=== PATIENT | female | born 2000 | race Caucasian/White ===

== ENCOUNTER → 2023-06-06 10:12 | Outpatient (CLI) | payer SELFPAY ==
[2023-06-06 12:33] LABS: HCG,Quantitative 16619 mIU/ml (0-5.42)
[2023-06-07 11:48] LABS: Progesterone 42.2 ng/mL (.)
== END ==
LOC: LAB 10:15
PROVIDERS: Visit Provider Obstetrics & Gynecology
DX: N92.6 Irregular menstruation, unspecified (principal); Z32.00 Encounter for pregnancy test, result unknown
CPT/HCPCS: 36415; 84144; 84702

== ENCOUNTER → 2023-07-03 12:28 | Outpatient (CLI) | payer SELFPAY ==
[2023-07-03 13:04] LABS: Basophils % 0.2 % (0.1-2.0); Eosinophils # 0.2 K/mm3 (0.0-0.4); Hematocrit 37.1 % (37.0-47.0); Hemoglobin 12.2 g/dL (12.2-16.2); Lymphocytes # 1.6 K/mm3 (0.7-4.5); Lymphocytes % 17.1 % (10-50); Mean Corpuscular HGB Conc 32.9 g/dL (31.8-35.4); Monocytes # 0.3 K/mm3 (0.1-1.0); Monocytes % 2.6 % (1.7-9.3); Neutrophils # 7.4 K/mm3 (1.8-7.8); Neutrophils % 78.1 % (37.0-80.0); Platelet Count 252 K/mm3 (142-424); Red Blood Count 4.07 M/mm3 (4.20-5.40); Red Cell Distribution Width 12.4 % (11.5-17.5); White Blood Count 9.5 K/mm3 (4.8-10.8)
[2023-07-03 13:14] LABS: Glucose,Fasting 96 mg/dl (74-100)
[2023-07-03 15:25] LABS: Glucose 1 Hour 120 mg/dL (74-100)
[2023-07-05 12:12] LABS: Rapid Plasma Reagin Ab Titer Non Reactive titer (NonRea<1:1)
[2023-07-10 12:15] LABS: HIV Screen 4th Generation wRfx Non Reactive; Hepatitis B Surface Antigen Negative; Hepatitis C Antibody Non Reactive
[2023-07-10 12:16] LABS: Rubella Antibodies, IgG 4.42
== END ==
LOC: LAB 12:28
PROVIDERS: Visit Provider Obstetrics & Gynecology
DX: Z34.93 Encounter for supervision of normal pregnancy, unspecified, third trimester (principal); Z3A.29 29 weeks gestation of pregnancy
CPT/HCPCS: 36415; 82951; 85025; 86593; 86703; 86762; 86850; 87086; 87340; 87380; G0432

== ENCOUNTER → 2023-07-06 09:50 | Outpatient (CLI) | payer SELFPAY ==
--- NOTE | 2023-07-06 09:50 | US_ITS ---
PROCEDURE: US OB /MATERNAL DETAIL CLINICAL INDICATION: anatomy scan COMPARISON: No exams were available for comparison FINDINGS: Transabdominal sonographic images of the uterus were obtained. From her last menstrual period she is 29 weeks 5 days. Single viable intrauterine gestation. Breech position. Placenta: Anteriorplacenta grade 1. There is average amount fluid. The cervix appears satisfactory. Closed and measuring 4.6 cm in length. Complete survey performed and was unremarkable on the submitted images as in PACS. No discrete anomalies identified on survey imaging by technologist. Active fetus. Three-vessel cord with satisfactory umbilical cord insertion. 4- chamber heart noted. Situs, aortic arch, LVOT, RVOT appear normal. Survey of brain & ventricles Unremarkable. Thalamus, choroid plexus, cisterna magna, cerebellum appear normal. Face and neck survey unremarkable. Profile, nasion, nose and lips appear normal. Diaphragm and chest views unremarkable. Abdomen: Both kidneys noted and unremarkable. Stomach, bladder noted and satisfactory. Spine: Survey of the spine satisfactory with no anomalies identified nor imaged. Upper, thoracic and lower spine appear normal. Both arms and legs noted. Amniotic Fluid: Adequate. Measurements: Average ultrasound age 28weeks 6days. Estimated due date by ultrasound age 1209/22/2023. Estimated weight 1,291g BPD = 29weeks 0 days OFD = 28weeks 2days HC = 28weeks 2days AC = 29weeks 1day FL = 28weeks 5days Growth Percentile= 13 Heart Rate = 155bpm Cerebellum = 30weeks 2days Humerus = 29weeks 1day HC/AC is 1.04 CI is 0.78 FL/BPD is 0.75 FL/AC is 0.22 IMPRESSION: 1. Viable fetus in breech presentation with an anterior placenta grade 1. 2. Fluid is within normal limits. 3. Anatomical scan appears normal. 4. Size is 1 week behind but we will not change the due date at this late date. Due date will remain September 16, 2023. Dictated by: Jerel Lockwood MD 07/08/2023 07:22 Jerel Lockwood MD in [facility] 07/08/2023 07:22
== END ==
LOC: RAD 09:50
PROVIDERS: Visit Provider Obstetrics & Gynecology
DX: Z34.93 Encounter for supervision of normal pregnancy, unspecified, third trimester (principal); Z3A.30 30 weeks gestation of pregnancy
CPT/HCPCS: 76811

== ENCOUNTER → 2023-08-02 13:24 | Outpatient (CLI) | payer MEDICAID, SELFPAY ==
--- NOTE | 2023-08-02 13:24 | US_ITS ---
PROCEDURE: US OB BIOPHYSICAL PROFILE CLINICAL INDICATION: lga/charleen/ sd ratio COMPARISON: Anatomy scan 07/06/2023 FINDINGS: Transabdominal sonographic images of the uterus were obtained. From her established due date she is 33weeks 4days. The following parameters are obtained: Viable fetus in the cephalic presentation with an anterior placenta grade 2. Average ultrasound age is 32weeks 4days. Estimated due date by ultrasound is 09/23/2023. Estimated weight is 4lb 3oz, 1909 grams. Cervix measures 4.3 cm. heart rate: 147bpm bpm. BPD: 32 weeks 2 days HC: 33 weeks 3 days AC: 31 weeks 6 days FL: 32 weeks 2 days HC/AC: 1.08 FL/BPD: 0.78 FL/AC: 0.22 10 percentile Amniotic fluid index: 9.51cm Qualitative AFV: 2 breathing movements: 2 Gross body movements: 2 Tone: 2 Biophysical profile score: 8 Doppler evaluation of the umbilical artery: SD ratio: 3.7 Resistive index: 0.78 No obvious anomalies evident.Profile, bladder, four-chamber heart, three-vessel cord appear normal. IMPRESSION: 1. Viable fetus in the cephalic presentation with an anterior placenta early grade 2. 2. The fluid is within normal limits. 3. Biophysical profile is 8/8 with good movement and good breathing movement seen. SD ratio is normal. 4. Fetus size is currently 10th percentile with the abdominal circumference approximately 2 weeks behind. Dictated by: Jerel Lockwood MD 08/02/2023 19:30 Jerel Lockwood MD in [facility] 08/02/2023 19:30
== END ==
PROVIDERS: PCP Obstetrics & Gynecology; Visit Provider Obstetrics & Gynecology
DX: O28.8 Other abnormal findings on antenatal screening of mother (principal); O36.63X0 Maternal care for excessive fetal growth, third trimester, not applicable or unspecified; Z3A.33 33 weeks gestation of pregnancy
CPT/HCPCS: 76816; 76819; 76820

== ENCOUNTER → 2023-08-21 16:56 | Outpatient (CLI) | payer MEDICAID, SELFPAY | PROVIDERS: PCP Obstetrics & Gynecology; Visit Provider Obstetrics & Gynecology | DX: Z34.93 Encounter for supervision of normal pregnancy, unspecified, third trimester (principal); Z3A.36 36 weeks gestation of pregnancy | CPT/HCPCS: 86403 ==

== ENCOUNTER 2023-08-30 14:52 | Inpatient (IN) | payer MEDICAID, SELFPAY ==
[2023-08-30 15:02] VITALS: BMI 27.3
[2023-08-30 15:38] LABS: Basophils % 0.3 % (0.1-2.0); Eosinophils # 0.1 K/mm3 (0.0-0.4); Eosinophils % 1.4 % (0.1-12.0); Hemoglobin 12.4 g/dL (12.2-16.2); Lymphocytes # 1.8 K/mm3 (0.7-4.5); Lymphocytes % 18.5 % (10-50); Mean Corpuscular HGB Conc 34.5 g/dL (31.8-35.4); Mean Corpuscular Hemoglobin 30.7 pg (27.0-31.2); Mean Platelet Volume 9.4 fl (7.4-10.4); Monocytes # 0.3 K/mm3 (0.1-1.0); Monocytes % 2.8 % (1.7-9.3); Neutrophils # 7.4 K/mm3 (1.8-7.8); Neutrophils % 77.1 % (37.0-80.0); Platelet Count 230 K/mm3 (142-424); Red Blood Count 4.04 M/mm3 (4.20-5.40); Red Cell Distribution Width 13.1 % (11.5-17.5); White Blood Count 9.6 K/mm3 (4.8-10.8)
[2023-08-30 16:00] VITALS: BMI 29.1
[2023-08-31 04:33] VITALS: BP 118/74; PULSE 74; RESP 18; TEMP 36.4; O2SAT 99
--- NOTE | 2023-08-31 07:57 | EXP.OB.APHP ---
OB - H&P: HPI Antepartum History of Present Illness Chief complaint: Induction of labor for asymmetric IUGR History of present illness: Ms Syl Prajapati is a 22 yo at 37w5d who presents to [facility] L&D for induction of labor secondary to asymmetric IUGR. Growth ultrasound with PDC 08/18/23 demonstrated EFW 16 %ile but AC lagging at 5%ile, RON WNL, BPP 8/8. UA dopplers within normal limits. Baby is active. Denies contractions, vaginal bleeding and leakage of fluid. GBS negative. History of Present Criteria for establishing EDC:: based on LMP only care: limited care Ultrasounds: abnormal US findings (asymmetric IUGR) Obstetrical complications: growth restriction Medical complications: none Labs Blood type: O (+) positive Rubella: immune RPR/VDRL: nonreactive GBS status: negative HBsAG: negative PFSH PFSH Disclaimer: The information contained in this section may have been updated after the patient was seen, as this information can be updated by other users. Medical History (Updated 08/31/23 @ 08:36 by Nubia Crawley DO) Asymmetric intrauterine growth restriction affecting , antepartum Late care affecting in third trimester with 37 weeks completed gestation Surgical History No history of previous surgery Family History Mother Diabetes Social History Smoking Status: Never smoker alcohol intake: never substance use type: denies use current occupational status: employed Travel in the last 8 weeks: None Review of Systems Review of Systems Review of systems:: pertinent systems reviewed and negative unless documented below Meds Home Medications and Allergies Home Medications Medication Instructions Recorded Confirmed Type vits no.126-ferrous fum 1 tab PO DAILY 07/03/23 08/30/23 History 28 mg iron-folic acid 800 mcg tablet (Classic ) New Prescriptions to Start Prescriptions: Allergies Allergy/AdvReac Type Severity Reaction Status Date / Time Sulfa (Sulfonamide Allergy Verified 08/29/23 10:40 Antibiotics) OB - H&P: Exam Physical Exam Vital signs: Temp Pulse Resp BP Pulse Ox O2 Del Method 97.5 F L 74 18 118/74 99 Room Air 08/31/23 04:33 08/31/23 04:33 08/31/23 04:33 08/31/23 04:33 08/31/23 04:33 08/31/23 04:33 Constitutional no acute distress and cooperative Routine HEENT Exam Head: Present normocephalic and atraumatic Eye: Absent conjunctivae pink ENT: Present mucous membranes moist and dentition normal Routine Respiratory Exam Present CTA bilaterally and normal respiratory effort Routine Cardiovascular Exam Present RRR Routine Abdominal Exam Present soft (Gravid); Absent tenderness Routine Rectal Exam Patient deferred: visual exam Routine Exam External: Present normal urethra appearance; Absent erythema, tenderness, lesions, lacerations or vulvar tenderness Routine Extremities Exam Present full ROM; Absent edema or calf tenderness Routine Neurological Exam Present alert, oriented X3 and moving all extremities Routine Psychiatric Exam Present normal affect and cooperative Detailed Labor and Delivery Exam Dilation (cm): 4 Effacement (%): 70 Cervix position: mid station: -1 Consistency: soft Membranes: artificially ruptured (amniotomy performed at 0732 with [place] without difficulty. Patient tolerated well. Clear fluid) Amniotic fluid: clear Baseline heart rate: 125 monitor accelerations: Present monitor decelerations: None skilled nursing variability: Moderate (11-25) Comments: Irregular contractions OB - Results Labs Labs: Short CBC 08/30/23 Range/Units 15:18 WBC 9.6 (4.8-10.8) K/mm3 Hgb 12.4 (12.2-16.2) g/dL Hct 36.0 L (37.0-47.0) % Plt Count
[2023-08-31 08:20] VITALS: BP 118/74; PULSE 68; RESP 18; TEMP 36.8
--- NOTE | 2023-08-31 09:41 | P.PNANES_ITS ---
[facility] Disclaimer: The information contained in this section may have been updated after the patient was seen, as this information can be updated by other users. Medical History (Updated 08/31/23 @ 08:36 by Nubia Crawley DO) Asymmetric intrauterine growth restriction affecting , antepartum Late care affecting in third trimester with 37 weeks completed gestation Surgical History No history of previous surgery Family History Mother Diabetes Social History Smoking Status: Never smoker alcohol intake: never substance use type: denies use current occupational status: employed Travel in the last 8 weeks: None [facility] Anesthesia Checklist Patient Identification Patient Identification: Verbal (Name & ) Structural Data Admitted From: Inpatient Planned Operative Procedure/s: labor epidural Consent for Planned Operative Procedure(s) Verified: Yes Airway Assessment Mallampati Score:: Class I C-Spine Mobility Assessed: Yes TMJ Mobility Assessed: Yes Dentition: Good Dentition Neurological Assessment Level of Consciousness: Awake, Alert and Appropriate Anesthesia Plan Anesthesia Risk discussed: Yes Anesthesia Plan: Verified ASA Class: II Anesthesia Type: Epidural
--- NOTE | 2023-08-31 12:44 | EXP.DN ---
Delivery Note Delivery Date:: 08/31/23 Delivery Time:: 12:30 Anesthesia Type: Epidural Was labor medically induced?: Yes Induction method: per misoprostol protocol Gestational age (weeks): 37 Infant delivered prior to 39 weeks?: Yes Justification for early elective delivery:: IUGR Infant Gender: Female at 1 minute: 8 at 5 minutes: 9 Delivery Procedure:: Mom complete with epidural. Pushed for approximately 14 minutes. Head delivered spontaneously over intact perineum in GRZEGORZ position. No nuchal cord. Anterior shoulder delivered with gentle downward pressure. Posterior shoulder and remainder of body delivered spontaneously. Baby placed on maternal abdomen, mouth and nares bulb suctioned, warmed/dried and stimulated. Delayed cord clamping was performed for 60 seconds. Cord was clamped and cut by father of baby. Cord blood was obtained. Placenta delivered spontaneously and intact. Placenta will be sent to pathology for review. Bilateral labial abrasions hemostatic. Mom and baby were skin to skin and doing well after delivery. Live female baby (baby's name is Catherine) APGARs 8, 9 EBL 75 mL Placental Delivery Description: Spontaneous
[2023-08-31 16:47] VITALS: BP 109/65; PULSE 96; RESP 18; TEMP 36.7; O2SAT 99
[2023-08-31 20:15] VITALS: BP 108/65; PULSE 97; RESP 17; TEMP 36.8; O2SAT 99
[2023-09-01 04:15] VITALS: BP 119/73; PULSE 92; RESP 17; TEMP 36.8; O2SAT 97
[2023-09-01 06:57] LABS: Basophils % 0.3 % (0.1-2.0); Eosinophils # 0.2 K/mm3 (0.0-0.4); Eosinophils % 1.6 % (0.1-12.0); Hemoglobin 11.8 g/dL (12.2-16.2); Lymphocytes # 2.4 K/mm3 (0.7-4.5); Lymphocytes % 23.8 % (10-50); Mean Corpuscular HGB Conc 35.8 g/dL (31.8-35.4); Mean Corpuscular Hemoglobin 32.1 pg (27.0-31.2); Mean Corpuscular Volume 89.8 fl (81-99); Mean Platelet Volume 8.8 fl (7.4-10.4); Monocytes # 0.4 K/mm3 (0.1-1.0); Monocytes % 4.3 % (1.7-9.3); Platelet Count 175 K/mm3 (142-424); Red Blood Count 3.67 M/mm3 (4.20-5.40); Red Cell Distribution Width 13.3 % (11.5-17.5)
[2023-09-01 08:15] VITALS: BP 115/66; PULSE 109; RESP 18; TEMP 36.7; O2SAT 96
--- NOTE | 2023-09-01 09:40 | SW/DCPLANNER ---
Addendum entered by Dilma Bates 09/07/23 07:24: Infant cord screen is NEGATIVE. Original Note: I received a consult on this patient regarding late care. Patient started care on 07/03/23: stated this was due to not knowing she was . Patient delivered female on 08/31/23: Catherine Pacheco. Infant's father (Andrzej Pacheco 08/01/98) was present at the time of my visit. Patient stated this is their first child. Patient stated that she will reside at [address] [facility] [place] and patient will reside at [address] [place] [address]. Patient's contact number is [phone]. Patient is currently established w/ WIC and is not interested in HANDS. Patient stated that she has the following items at home: crib, carseat, clothing, diapers and will be bottle feeding. Patient stated the PED MD will be Dr Thompson and she will have transportation to all follow up appointments. Patient and infant are expected to discharge home tomorrow 09/02/23 pending no setbacks.
--- NOTE | 2023-09-01 11:52 | EXP.ACUTE.PN ---
Subjective *Date: 09/01/23 *Time: 11:52 Interval history: PPD # 1 s/p Syl is resting comfortably this morning. Pain controlled. She is formula feeding. Reports light bleeding. Voiding without difficulty and passing flatus. Tolerating regular diet. Denies fever/chills, chest pain and shortness of breath. No headaches, dizziness/lightheadedness. Ambulating well ad richard. Medical Exam Vital signs and Labs for Last 24 Hours: Vital Signs Temp Pulse Resp BP Pulse Ox O2 Del Method 09/01/23 08:15 98.1 F 109 H 18 115/66 96 Room Air 09/01/23 04:15 98.2 F 92 H 17 119/73 97 Room Air 08/31/23 20:15 98.2 F 97 H 17 108/65 L 99 Room Air 08/31/23 16:47 98.1 F 96 H 18 109/65 L 99 Room Air Laboratory Results - last 24 hr 09/01/23 06:40: WBC 10.0, RBC 3.67 L, Hgb 11.8 L, Hct 33.0 L, MCV 89.8, MCH 32.1 H, MCHC 35.8 H, RDW 13.3, Plt Count 175, MPV 8.8, Neut % (Auto) 70.0, Lymph % (Auto) 23.8, [place] % (Auto) 4.3, Eos % (Auto) 1.6, Baso % (Auto) 0.3, Neut # (Auto) 7.0, Lymph # (Auto) 2.4, [place] # (Auto) 0.4, Eos # (Auto) 0.2, Baso # (Auto) 0.0 I & O for Labs for Last 24 Hours: Intake & Output 08/29/23 08/30/23 08/31/23 09/01/23 23:59 23:59 23:59 23:59 Weight 175 lb Head: Present atraumatic and normocephalic ENT: Present normal exam Neck: Present full ROM Respiratory: Present CTA bilaterally and normal respiratory effort Cardiac: Present Reg Rate and Rhythm GI: Present soft; Absent distention, tenderness or guarding Comments:: Uterine fundus firm and below umbilicus Rectal (female): Present deferred (female): Present deferred Extremities: Present full ROM; Absent edema or calf tenderness Neuro: Present alert, awake, oriented x 3 and moves all extremities Assessment and Plan *Assessment and plan (1) with 37 weeks completed gestation: Status: Acute Category: Medical Code(s): Z3A.37 - 37 weeks gestation of (2) Asymmetric intrauterine growth restriction affecting , antepartum: Status: Acute Category: Medical Code(s): O36.5990 - Maternal care for other known or suspected poor growth, unspecified trimester, not applicable or unspecified (3) Late care affecting in third trimester: Status: Acute Category: Medical Code(s): O09.33 - Supervision of with insufficient care, third trimester (4) Acute blood loss anemia: Status: Acute Category: Medical Code(s): D62 - Acute posthemorrhagic anemia Plan Continue routine care Encouraged increased ambulation Plan d/c home PPD # 2 if baby is doing well
[2023-09-01 12:05] VITALS: BP 100/53; PULSE 88; RESP 16; TEMP 36.7; O2SAT 97
[2023-09-01 17:40] VITALS: BP 109/69; PULSE 80; RESP 16; TEMP 36.6; O2SAT 99
[2023-09-01 20:45] VITALS: BP 122/80; PULSE 82; RESP 17; TEMP 36.7; O2SAT 97
[2023-09-02 04:25] VITALS: BP 120/68; PULSE 78; RESP 17; TEMP 36.7; O2SAT 98
[2023-09-02 08:30] VITALS: BP 116/69; PULSE 80; RESP 18; TEMP 36.5; O2SAT 100
--- NOTE | 2023-09-02 11:15 | EXP.DC.SUM ---
General Admission date:: 08/30/23 Discharge date: 09/02/23 HPI HPI HPI: Ms Syl Prajapati is a 22 yo at 37w5d who presents to [facility] L[facility]D for induction of labor secondary to asymmetric IUGR. Growth ultrasound with PDC 08/18/23 demonstrated EFW 16 %ile but AC lagging at 5%ile, RON WNL, BPP 8/8. UA dopplers within normal limits. Baby is active. Denies contractions, vaginal bleeding and leakage of fluid. GBS negative. Hospital Course Hospital Course Hospital Course: Syl is a 22yo PPD#2 from an over intact perineum. She is resting comfortably this morning. Pain controlled. She is formula feeding. Reports light bleeding. Voiding without difficulty and passing flatus. Darvin BM. Tolerating regular diet. Denies fever/chills, chest pain and shortness of breath. No headaches, dizziness/lightheadedness. Ambulating well ad richard. patient desires discharge home today. Routine discharge directions reviewed with patient in detail and she was understanding. All questions and concerns were addressed. Exam Data for Last 24 hours Vital signs and Labs for Last 24 Hours: Temp Pulse Resp BP Pulse Ox O2 Del Method 98.1 F 78 17 120/68 98 Room Air 09/02/23 04:25 09/02/23 04:25 09/02/23 04:25 09/02/23 04:25 09/02/23 04:25 09/02/23 04:25 I & O for Last 24 hours: Intake & Output 08/30/23 08/31/23 09/01/23 09/02/23 23:59 23:59 23:59 23:59 Weight 175 lb Narrative: General: patient is alert oriented in no acute distress and responds appropriately to questions. Appears to be in minimal pain. Sitting up in the chair and doing well HEENT: NCAT, EOMI, moist mucous membranes, neck supple with full ROM Cardiovascular: RRR +S1/S2, no murmurs or rubs Pulmonary: Clear to auscultation bilaterally, nonlabored breathing, symmetric chest rise Abdominal: Fundus below the umbilicus, firm, and tenderness appropriate for the period. Extremities: trace edema, no tenderness or cyanosis noted Skin: Normal turgor, intact, warm. Negative for erythema, pallor, petechia, or lesions Neurologic: Negative for sensory or motor deficit Psychiatric: Normal affect, normal thought process, good judgment and insight, no depression or anxious mood appreciated. Constitutional Constitutional: no acute distress *Routine HEENT Exam Head: Present normocephalic Eye: Present EOMI and PERRL ENT: Present mucous membranes moist *Routine Neck Exam Neck: Present supple; Absent lymphadenopathy *Routine Respiratory Exam Respiratory: Present CTA bilaterally *Routine Cardiovascular Exam Cardiovascular: Present RRR *Routine Abdominal Exam Abdominal: Present soft and normoactive bowel sounds; Absent tenderness *Routine Extremities Exam Extremities: Absent cyanosis, clubbing or edema *Routine Skin Exam Skin: Present warm; Absent rash *Routine Neurological Exam Neurological: Present alert and oriented X3 DS: Diagnosis Discharge Diagnosis (1) with 37 weeks completed gestation: Status: Acute Code(s): Z3A.37 - 37 weeks gestation of (2) Asymmetric intrauterine growth restriction affecting , antepartum: Status: Acute Code(s): O36.5990 - Maternal care for other known or suspected poor growth, unspecified trimester, not applicable or unspecified (3) Late care affecting in third trimester: Status: Acute Code(s): O09.33 - Supervision of with insufficient care, third trimester (4) Acute blood loss anemia: Status: Acute Code(s): D62 - Acute posthemorrhagic anemia Problem details: Stable. PPD#2 s/p over intact perineum -Doing well. VSS. Serial lochia and fundal checks. -O+/antibody negative -Bottle feeding, Female infant -hemoglobin: 12.4-->11.8. Doing well no symptoms of anemia -Follow-up 2 weeks for routine visit and incision check -Dispo: home today Meds Home Medications and Allergies Home Med
== END 2023-09-02 12:00 | disposition home or self-care (01) | DRG 807 ==
PROVIDERS: Admitting Provider Obstetrics & Gynecology; Visit Provider Nurse Practitioner Obstetrics & Gynecology
DX: O36.5930 Maternal care for other known or suspected poor fetal growth, third trimester, not applicable or unspecified (principal); Z37.0 Single live birth; Z3A.37 37 weeks gestation of pregnancy
CPT/HCPCS: 59409; 36415; 59025; 85025; 86850; 88307; 90732; 94761; G0283